=== PATIENT | female | born 1965 | race Caucasian/White ===

== ENCOUNTER 2017-03-17 12:42 | Emergency (ER) | payer MEDICAID ==
[~2017-03-17] VITALS: Ht 162.6 cm; Wt 73.5 kg
[2017-03-17 12:49] VITALS: Ht 162.6 cm; Wt 73.5 kg
[2017-03-17 20:37] VITALS: BP 132/96
== END 2017-03-17 20:20 | disposition home or self-care (01) ==
LOC: ED 12:42
DX: M62.838 Other muscle spasm (principal); E11.9 Type 2 diabetes mellitus without complications; G51.0 Bell's palsy; Z79.4 Long term (current) use of insulin
CPT/HCPCS: 82962; J1885